=== PATIENT | female | born 1975 | race Caucasian/White ===

== ENCOUNTER 2018-01-05 10:33 | Day surgery (SDC) | payer BC ==
[~2018-01-05 10:33] MED LIST: Buffered Lidocaine 0.9% SYRIN* 5 ML/SYR SYRINGE INTRADERM ONE
[2018-01-05] MEDS ORDERED: fentaNYL* 50 MCG/ML 2 ML VIAL (100 MCG VIAL) ONE ×2 (11:06→13:22)
[2018-01-05] MEDS ORDERED: Midazolam* 1 MG/ML 2 ML VIAL (2 MG) ONE ×2 (11:07→12:09)
[2018-01-05 11:23] LABS: ABS Basophils 0 10^3/ul (0-0.2); ABS Eosinophils 0.1 10^3/ul (0-0.6); ABS Lymphocytes 1.2 10^3/ul (1.0-4.8); ABS Monocytes 0.6 10^3/ul (0-0.8); ABS Neutrophils 2.4 10^3/ul (1.5-7.7); ABS Nucleated RBC 0 10^3/ul; Eosinophil % 1.6 % (0-6); Hematocrit 42 % (35-47); Hemoglobin 14.4 g/dl (12.0-16.0); Lymphocyte % 26.8 % (25-47); Mean Corpuscular HGB Conc 34 g/dl (31-36); Mean Corpuscular Hemoglobin 32 pg (27-31); Mean Corpuscular Volume 93 fL (80-97); Mean Platelet Volume 10.1 um3 (7.4-10.4); Nucleated Red Blood Cells % 0.1; Platelet Count 144 10^3/ul (150-450); Red Blood Count 4.51 10^6/ul (4.00-5.40); Red Cell Distribution Width 12 % (10.5-15); White Blood Count 4.4 10^3/ul (3.5-10.8)
[2018-01-05] MEDS ORDERED: Morphine VIAL* 10 MG/ML 1 ML VIAL ONE (11:48)
[2018-01-05] MEDS ORDERED: Lidocaine 2% PF * 5 ML VIAL ONE (12:09)
[2018-01-05] MEDS ORDERED: Propofol* 10 MG/ML 20 ML BTL IV PUSH ONE (12:19)
[2018-01-05] MEDS ORDERED: DiMENhydriNATE IV* 50 MG/ML VIAL ONE (12:19)
[2018-01-05] MEDS ORDERED: Famotidine IV* 10 MG/ML 2 ML (20 mg) ONE (12:19)
[2018-01-05] MEDS ORDERED: Dexamethasone IV* 4 MG/ML 1 ML (4 MG) ONE (12:19)
[2018-01-05] MEDS ORDERED: PROCHLORPERAZINE INJ 5 MG/ML 2 ML VIAL IV PRN (13:19)
[2018-01-05] MEDS ORDERED: HYDROcodone/ACETAMIN 5-325 MG* 1 TAB PO PRN ×2 (13:19)
[2018-01-05] MEDS ORDERED: Acetaminophen TAB* 325 MG PO PRN (13:19)
[2018-01-05] MEDS ORDERED: Naloxone* 0.4 MG/ML 1 ML VIAL IV PRN (13:19)
[2018-01-05] MEDS ORDERED: DiMENhydriNATE IV* 50 MG/ML VIAL IV PUSH PRN (13:19)
[2018-01-05] MEDS ORDERED: Scopolamine 1.5 mg* PATCH TRANSDERM PRN (13:19)
[2018-01-05] MEDS ORDERED: Ondansetron INJ* 2 MG/ML VIAL IV PRN (13:19)
[2018-01-05] MEDS ORDERED: diPHENhydraMINE IV* 50 MG/ML 1 ml VIAL (BENADRYL) IV PRN (13:19)
[2018-01-05] MEDS ORDERED: fentaNYL* 50 MCG/ML 2 ML VIAL (100 MCG VIAL) IV PRN (13:19)
[2018-01-05] MEDS ORDERED: Acetaminophen TAB* 325 MG ONE (13:53)
[2018-01-05 14:25] VITALS: BP 108/68
--- NOTE | 2018-01-06 08:01 | OP ---
DATE OF OPERATION: 01/05/18 - [facility] DATE OF : 77 SURGEON: Surjit Wagner MD ICU SPECIALIST: None. ANESTHESIA: General endotracheal tube. PRE-OP DIAGNOSIS: Dysfunctional uterine bleeding. POST-OP DIAGNOSIS: Dysfunctional uterine bleeding. OPERATIVE PROCEDURE: D and C hysteroscopy, endometrial ablation. ESTIMATED BLOOD LOSS: Minimal. SPECIMEN: Includes endometrium. FINDINGS: On hysteroscopy, the uterus was retroverted. Normal tubal ostia were visualized. There was fluffy endometrium. There was second-degree prolapse with traction. DESCRIPTION OF PROCEDURE: The patient identified, procedure identified as D and C hysteroscopy, endometrial ablation. The patient was taken to the operating room, prepped and draped in the usual fashion in the dorsal lithotomy position under general anesthesia. Two single-toothed tenaculums were placed on the anterior lip of the cervix. Cervix was easily dilated up to a #8 Benny dilator after being sounded to 8.5 cm. The above findings were noted on hysteroscopy. The hysteroscope was removed and a sharp curette was inserted and sharp curettage performed with a good specimen obtained. The NovaSure ablation device was opened. The array was checked. The device was placed in the cavity with the cavity length of 5.5, sounding length of 8.5 and cervical length of 3.0. Cavity width with opening of the device was 4.6. The CO2 perforation test was performed and then device passed. The device was enabled and NovaSure ablation took place at power setting of 139 for the time of 1 minute and 23 seconds. At the end of the procedure, the uterine cavity was inspected and good ablation was noted. No perforations or other defects were noted and all instruments were removed from the vagina. Sponge and instruments were correct and the patient returned to recovery room in stable condition. [id number] #: [id number] [facility]
[2018-01-08] MEDS ORDERED: Scopolamine PATCH Remove* 1 NOTE MISC PATCH OFF ONE (13:20)
== END 2018-01-05 14:37 | disposition home or self-care (01) ==
LOC: OR 10:33
PROVIDERS: ATTEND Obstetrics & Gynecology
DX: N93.8 Other specified abnormal uterine and vaginal bleeding (principal); Z87.891 Personal history of nicotine dependence; K58.9 Irritable bowel syndrome, unspecified
CPT/HCPCS: 36415; 81025; 85025; 86850; 86900; 86901; 88305; A9270-GY; J1100; J1240; J2250; J2270; J2704; J3010